=== PATIENT | female | born 1930 | race African-American/Black ===

== ENCOUNTER → 2018-06-23 | Outpatient (CLI) | payer MEDICARE ==
--- NOTE | 2018-06-23 17:08 | KCIC ---
Indication: Bilateral knee pain. TECHNIQUE: Single AP views of the bilateral knees. COMPARISON: None FINDINGS: No acute fractures. There is mild medial and lateral joint compartment space narrowing. No marginal osteophyte formation. No soft tissue abnormality. IMPRESSION: Early evidence of knee joint osteoarthritis. Electronically signed by: Ricky Allen DO (06/23/2018 5:05 PM) [facility]
== END | disposition home or self-care (01) ==
LOC: KCIC 14:35
PROVIDERS: ATTEND Physical Medicine & Rehabilitation
DX: M17.0 Bilateral primary osteoarthritis of knee (principal)
CPT/HCPCS: 73565

== ENCOUNTER → 2020-03-29 | Outpatient (CLI) | payer MEDICARE, OTHER ==
[2020-03-29 11:51] LABS: BASO % 1 % (0-3); EOS % 1 % (0-3); HEMATOCRIT 36.8 % (36.0-47.0); HEMOGLOBIN 12.7 g/dL (12.0-15.5); LYMPH # 2.2 x10^3/uL (1.0-4.8); LYMPH % 37 % (24-48); MEAN CORPUSCULAR HEMOGLOBIN 31 pg (25-35); MEAN CORPUSCULAR HGB CONC 35 g/dL (31-37); MEAN CORPUSCULAR VOLUME 91 fL (79-100); MONO # 0.7 x10^3/uL (0.0-1.1); MONO % 11 % (0-9); NEUT # 3.1 x10^3/uL (1.8-7.7); NEUT % 51 % (31-73); PLATELET COUNT 356 x10^3/uL (140-400); RED BLOOD COUNT 4.05 x10^6/uL (3.50-5.40); RED CELL DISTRIBUTION WIDTH 13.2 % (11.5-14.5); WHITE BLOOD COUNT 6.1 x10^3/uL (4.0-11.0)
[2020-03-29 12:18] LABS: CALCIUM 11.2 mg/dL (8.5-10.1); CREATININE 1.3 mg/dL (0.6-1.0); GFR 46.8; POTASSIUM 3.8 mmol/L (3.5-5.1)
[2020-03-29 12:24] LABS: ALBUMIN 3.5 g/dL (3.4-5.0); ALBUMIN/GLOBULIN RATIO 0.9 (1.0-1.7); TOTAL BILIRUBIN 0.4 mg/dL (0.2-1.0); TOTAL PROTEIN 7.6 g/dL (6.4-8.2)
== END | disposition home or self-care (01) ==
LOC: ONCLAB 11:36
PROVIDERS: ATTEND Internal Medicine Hematology & Oncology
DX: C18.0 Malignant neoplasm of cecum (principal)
CPT/HCPCS: 36415; 80053; 82378; 85025